=== PATIENT | female | born 1965 | race Caucasian/White ===

== ENCOUNTER 2020-01-24 09:21 | Outpatient (CLI) | payer BC, SELFPAY ==
--- NOTE | 2020-01-24 09:28 | US_ITS ---
WS: [id number] ULTRASOUND PELVIS TECHNIQUE: Transabdominal and transvaginal. ULTRASOUND PELVIS TECHNIQUE: Transabdominal. CLINICAL INFORMATION: EXCESSIVE MENSTRUATION WITH REGULAR CYCLE LMP: December 15, 2019 : No. COMPARISON: None. FINDINGS: Uterus Orientation: Anteverted. Size: 8.47 cm x 7.1 cm x 5.1 cm. Masses: Multiple fibroids Cervix: Incidental nabothian cysts. Endometrium: Thickened Endometrium thickness: 1.2 cm. Adnexa: Normal. Right ovary size: 2.3 cm x 1.5 cm x 1.2 cm. Right ovary volume: 2.3 ccm3. Left ovary size: 3.2 cm x 2.5 cm x 1.5 cm. Left ovary volume: 6.0 ccm3 Free fluid: None. Other findings: None. US/US pelvic with transvaginal IMPRESSION: 1. Heterogeneous fibroid uterus. 2. Thickened endometrium measuring 11.9 mm. 3. No free fluid in the cul-de-sac. 4. Normal ovaries.
== END 2020-01-24 09:22 | disposition home or self-care (01) ==
LOC: RAD 09:26
PROVIDERS: PCP Family Medicine; Visit Provider Family Medicine
DX: N92.0 Excessive and frequent menstruation with regular cycle (principal); D25.9 Leiomyoma of uterus, unspecified; R93.89 Abnormal findings on diagnostic imaging of other specified body structures
CPT/HCPCS: 76830; 76856

== ENCOUNTER → 2021-05-08 13:28 | Outpatient (BNVA) | payer OTHER, SELFPAY | PROVIDERS: PCP Family Medicine; Visit Provider Nurse Practitioner Family | DX: Z20.822 Contact with and (suspected) exposure to COVID-19 (principal) | CPT/HCPCS: 87635 ==

== ENCOUNTER 2022-04-21 06:00 | Outpatient (RCR) | payer BC, SELFPAY | END 2022-04-26 23:59 | disposition home or self-care (01) | LOC: SPT 06:00 | PROVIDERS: PCP Family Medicine; Visit Provider Family Medicine | DX: M25.511 Pain in right shoulder (principal) | CPT/HCPCS: 97110; 97162 ==

== ENCOUNTER 2022-04-27 06:00 | Outpatient (RCR) | payer BC, SELFPAY | END 2022-05-25 16:39 | disposition home or self-care (01) | LOC: SPT 06:00 | PROVIDERS: PCP Family Medicine; Visit Provider Family Medicine | DX: M25.511 Pain in right shoulder (principal) | CPT/HCPCS: 97110 ==

== ENCOUNTER 2022-07-15 15:59 | Outpatient (CLI) | payer BC, SELFPAY ==
--- NOTE | 2022-07-15 16:37 | XR_ITS ---
WS: [id number] LEFT KNEE: 3 VIEW(S) TECHNIQUE: AP, oblique(s) and lateral. HISTORY: LEFT KNEE PAIN COMPARISON: None available. No fracture or dislocation. No joint space narrowing or osteophytes. No joint effusion. No soft tissue abnormality. XR/XR knee LT 3V* [id number] IMPRESSION: Normal LEFT knee.
== END 2022-07-15 16:00 | disposition home or self-care (01) ==
PROVIDERS: PCP Family Medicine; Visit Provider Family Medicine
DX: M25.562 Pain in left knee (principal)
CPT/HCPCS: 73562

== ENCOUNTER → 2022-09-03 09:55 | Outpatient (BNVA) | payer BC, SELFPAY | PROVIDERS: PCP Family Medicine; Referring Provider Family Medicine; Visit Provider Student in an Organized Health Care Education/Training Program | DX: M94.262 Chondromalacia, left knee (principal) | CPT/HCPCS: 73560; 73565 ==

== ENCOUNTER 2023-04-05 08:50 | Outpatient (CLI) | payer BC, SELFPAY ==
[2023-04-05 09:46] VITALS: BMI 31.6
--- NOTE | 2023-04-05 09:47 | ECG_ITS ---
[facility] Test Date: 2023-04-05 Pat Name: Italia Mancia Department: Room: Gender: Female Pulmonary Specialist: Dank Henderson : 1965 Requested By: Eugenie Jarrell Order Number: [id number] Josie MD: Paul De Anda M.D. Interpretive Statements NAME OF STUDY: EXERCISE SESTAMIBI STRESS TEST INDICATION: [cp, htn, ] EXERCISE DATA: The patient was exercised by Gerry protocol. Baseline heart rate was 73 beats per minute. Baseline blood pressure was 171/107 millimeters of mercury. Target heart rate was 138 beats per minute. Maximum heart rate achieved was 168 which was 121% of the target heart rate. Maximum blood pressure was 220/71 millimeters of mercury. Total exercise time was 7 minutes and 19 seconds. Maximum METs achieved was 10.2. The reason for ending the test was maximal effort achieved. The patient complained of shortness of breath during the stress test, which then resolved at the end of the test. ELECTROCARDIOGRAM: BASELINE: Showed sinus rhythm, normal axis, no significant ST-T changes at the baseline noted. [] EXERCISE: At the peak exercise level, [] No significant ST-T changes suggestive of ischemia noted. [] RECOVERY: During the recovery period, heart rate dropped appropriately. No significant ST-T changes in the recovery suggestive of ischemia noted. [] CONCLUSION: 1. Exercise capacity is good. 2. Heart rate response was appropriate 3. Blood pressure response was hypertensive 4. Symptoms not suggestive of ischemia. 5. Electrocardiogram portion of the stress test was not suggestive of ischemia. 6. Nuclear scan will be documented separately. Electronically Signed On 04-21-2023 11:57:21 CDT by Paul De Anda M.D. [id number]
--- NOTE | 2023-04-05 09:48 | NMCV_ITS ---
NM nirmala perf SPECT r/s* [id number] Italia Mancia Age: 57 Gender: F : 1965 Exam Date: 04/05/2023 10:02 Ordering Phys: Eugenie Buckner MD Technologist: DENISE Mariee Exam Location: [facility] Indications: HYPERTENSION, CHEST PAIN STRESS TEST Please see separate stress test report in [facility] for full findings IMAGE PROTOCOL Rest/Stress 1 Exercise Day Radiopharmaceutical Dose (mCi) Administration Site Administered by Rest: Tc-99m 10.7 IV DENISE Dumont Sestamibi Stress:Tc-99m 32.6 IV DENISE Dumont Sestamibi Rest: 05-Apr-2023 60 Discovery 630 Stress: 05-Apr-2023 30 Discovery 630 Radiopharmaceutical was injected at 98 % maximum heart rate. Images obtained in supine and prone position. SPECT RESULTS Technical Quality: Excellent Raw Data Analysis: Normal Image Corrections: No attenuation or motion correction applied Summed Stress Score: 0 Summed Rest Score: 0 Summed Difference Score: 0 PERFUSION FINDINGS SPECT images demonstrate homogeneous tracer distribution throughout the myocardium. FUNCTIONAL RESULTS (calculated via Gated SPECT) Stress Image LV EF (%): 83 Stress EDV (mL):70 TID: 0.73 Stress ESV (mL):12 FUNCTIONAL FINDINGS: There is normal left ventricular systolic function. IMPRESSIONS 1. Normal myocardial perfusion imaging with no evidence of ischemia 2. LV systolic function is normal Paul De Anda MD (Electronically Signed) Final Date: 05 April 2023 12:38 S
[2023-04-05 11:08] VITALS: BP 160/93; PULSE 93
== END 2023-04-05 08:51 | disposition home or self-care (01) ==
LOC: CDL 08:51
PROVIDERS: PCP Family Medicine; Visit Provider Family Medicine
DX: R07.9 Chest pain, unspecified (principal); I10 Essential (primary) hypertension
CPT/HCPCS: 36415; 78452; 93017; A9500

== ENCOUNTER 2023-10-14 10:11 | Outpatient (CLI) | payer BC, SELFPAY ==
--- NOTE | 2023-10-14 10:44 | XR_ITS ---
WS: [id number] Exam: XR knee RT 3V* [id number] Date/Time of Exam: 10/14/2023 10:50 AM Reason For Exam: PAIN IN RIGHT KNEE Comparison 09/03/2022. No fracture or dislocation. The joint compartments are relatively well-maintained. No joint effusion. Normal soft tissues. IMPRESSION: 1. Negative RIGHT knee. Kellgren-Levy Levy grade 0
== END 2023-10-14 10:12 | disposition home or self-care (01) ==
LOC: LAB 10:13
PROVIDERS: PCP Family Medicine; Visit Provider Family Medicine
DX: M25.561 Pain in right knee (principal)
CPT/HCPCS: 73562

== ENCOUNTER 2024-05-31 13:29 | Outpatient (CLI) | payer BC, SELFPAY | END 2024-05-31 13:30 | disposition home or self-care (01) | LOC: SLEEP 13:30 | PROVIDERS: PCP Family Medicine; Visit Provider Family Medicine | DX: G47.33 Obstructive sleep apnea (adult) (pediatric) (principal) | CPT/HCPCS: G0399 ==

== ENCOUNTER → 2024-10-19 07:47 | Outpatient (BNVA) | payer BC, SELFPAY | PROVIDERS: PCP Family Medicine; Visit Provider Family Medicine | DX: Z13.6 Encounter for screening for cardiovascular disorders (principal); Z00.00 Encounter for general adult medical examination without abnormal findings; Z51.81 Encounter for therapeutic drug level monitoring; R53.81 Other malaise; R53.83 Other fatigue; E55.9 Vitamin D deficiency, unspecified | CPT/HCPCS: 80053; 80061; 82306; 84443; 85025 ==

== ENCOUNTER → 2025-01-07 14:46 | Outpatient (BNVA) | payer BC, SELFPAY | PROVIDERS: PCP Family Medicine; Visit Provider Family Medicine | DX: R30.0 Dysuria (principal) | CPT/HCPCS: 81000; 87086 ==